=== PATIENT | male | born 1975 | race Caucasian/White ===

== ENCOUNTER 2022-05-04 09:24 | Day surgery (SDC) | payer BC ==
[~2022-05-04 09:24] MED LIST: Lactated Ringers 1,000 ML IV SCH; ceFAZolin 2 GM in Premix Bag 1 BAG IV SCH
[2022-05-04] MEDS ORDERED: fentaNYL 100 MCG/2 ML SDV ONE (10:04)
[2022-05-04] MEDS ORDERED: Lidocaine 2% 5 ML SDV ONE (10:04)
[2022-05-04] MEDS ORDERED: Ondansetron 4 MG/2 ML SDV ONE (10:04)
[2022-05-04] MEDS ORDERED: Propofol 200 MG/20 ML SDV ONE (10:04)
[2022-05-04] MEDS ORDERED: Midazolam 1 MG/ML 2 ML SDV ONE (10:05)
[2022-05-04] MEDS ORDERED: HYDROmorphone 1 MG/ML Syringe IVPUSH PRN (10:17)
[2022-05-04] MEDS ORDERED: Morphine 2 MG/ML SYRINGE IVPUSH PRN (10:17)
[2022-05-04] MEDS ORDERED: Albuterol 0.083% 2.5 MG/3 ML Neb Soln NEB PRN (10:17)
[2022-05-04] MEDS ORDERED: Metoclopramide 10 MG/2 ML SDV IVPUSH PRN (10:17)
[2022-05-04] MEDS ORDERED: Ondansetron 4 MG/2 ML SDV IVPUSH PRN (10:17)
[2022-05-04] MEDS ORDERED: fentaNYL 50 MCG/ML SDV IVPUSH PRN (10:17)
[2022-05-04] MEDS ORDERED: Naloxone 0.4 MG/ML SDV IVPUSH PRN (10:17)
[2022-05-04] MEDS ORDERED: Bupivacaine 0.5% 30 ML SDV ONE (10:48)
[2022-05-04] MEDS ORDERED: Ketorolac 30 MG/ML SDV ONE (11:31)
== END 2022-05-04 12:52 | disposition home or self-care (01) ==
LOC: MW.SDS 09:24
PROVIDERS: ATTEND Surgery
DX: L72.0 Epidermal cyst (principal); E11.9 Type 2 diabetes mellitus without complications; E78.00 Pure hypercholesterolemia, unspecified; E66.9 Obesity, unspecified; Z79.899 Other long term (current) drug therapy
CPT/HCPCS: 11406; 82947; J0131; J0690; J1885; J2250; J2704; J3010; J3490; J7120; 00400; J2405